=== PATIENT | male | born 2000 | race Asian ===

== ENCOUNTER 2021-01-04 11:36 | Inpatient (IN) ==
[2021-01-04] MEDS ORDERED: LIDO/EPINEPHRINE/SOD BICARB 20 ML VIAL INFIL ONE (12:03)
[2021-01-04] MEDS ORDERED: ACETAMINOPHEN 500 MG TAB PO STA (12:04)
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
--- NOTE | 2021-01-04 12:53 | XRay Report ---
XR hand RT min 3V routine CLINICAL HISTORY: right hand injury, laceration over 4th MCP COMPARISON: None FINDINGS: Lateral view demonstrates soft tissue swelling of the dorsal right hand overlying the meta carpals. Multiple locules of soft tissue gas are present consistent with laceration. There is lucency and cortical irregularity of the right fourth metacarpal head consistent with fracture. Adjacent den sities favor bone fragments. Radiopaque foreign bodies could appear similar but are considered less l ikely. No additional acute fractures are identified. The carpal bones are intact. IMPRESSION: Dorsal right hand soft tissue swelling and gas consistent with laceration. Associated acu te comminuted fracture of the right fourth metacarpal head. Adjacent radiodensities favor bone fragme nts. Radiopaque foreign bodies could appear similar although are considered less likely. ACT 112: Negative or not required by law. Electronically signed by: Geo Arellano M.D. 01/04/2021 12:52 PM
[2021-01-04] MEDS ORDERED: ceFAZolin 2000MG 2,000 MG/15 ML SYR IV STA (13:19)
[2021-01-04] MEDS ORDERED: metroNIDAZOLE 500 MG/100 ML BAG IV STA (14:51)
--- NOTE | 2021-01-04 15:21 | History & Physical Report ---
Date of Service January 04, 2021 Assessment & Plan (1) Open fracture of metacarpal bone: Plan: Patient was seen and evaluated by Dr. Penaloza. We will plan on admitting him to the hospital and taken to the operating room urgently for an irrigation and debridement of his right hand, to decrease risk of infection 4th metacarpal and 4th MCP joint. Risk and complications of the procedure were explained to the patient and informed consent was obtained. We will obtain a preoperative COVID- 19 test. He will be started on IV Unasyn. His wound was washed out in the emergency room and a light dressing was applied temporarily. He will be admitted for 48 hours worth of antibiotics. He understands and agrees with the plan. Is currently n.p.o. He understands and agrees with the plan. Present on Admission?: Yes History of Present Illness Chief Complaint: right hand laceration, pain Primary Care Provider: [facility] This patient is a 20-year-old male who presents to the emergency department for evaluation of an injury to his right hand. Patient states that he was taking out the trash last night and fell. He landed on some glass and cut his hand. He states that his friend is a nurse and looked at it and said they did not think he needed stitches. He was seen at [facility] this morning and states that x-rays were done and he was told there was a fracture and he needed to come here. He was given a tetanus shot while at [employer]. The injury occurred approximately 10 hours prior to arrival. Patient reports pain in the hand rated a 2/10. Allergies Allergy/AdvReac Type Severity Reaction Status Date / Time No Known Allergies Allergy Unverified 01/04/21 15:09 Home Medications Medication Instructions Recorded Confirmed Type duloxetine 30 mg capsule,delayed 30 mg PO DAILY 01/04/21 01/04/21 History release Past Med/Surg History Medical History Smoker Family History Other Diabetes Heart disease Social History Smoking Status: Current some day smoker Tobacco Type: Cigarettes and E-cigarettes / Vaping Hx Alcohol Use: No Hx Substance Use: Yes Non-Prescribed Medications: Marijuana Current Living Situation: Other Current Living Situation Comment: with college roommates current occupational status: student Feels Safe at Home: Yes Review of Systems Review of Systems: All systems reviewed & are unremarkable except as noted in HPI & below Physical Exam Constitutional: WD/WN, vitals as above Cardiovascular: RRR, no murmur, no edema Chest (Breasts): Additional Comments: Lung: Normal lung sounds and effort. Gastrointestinal (Abdomen): Inspection/Auscultation: abdomen normal to inspection and normal bowel sounds; abdomen not distended Musculoskeletal: Exam of right hand: 3 cm oblique laceration dorsal right hand over 4th MCP joint. Active bleeding, no purulence. Mildly tender with palpation of right 4th MCP joint. Nontender throughout rest of hand, full ROM of right wrist. Good finger ROM and decrease strength secondarily to pain. Distal radius and distal ulna pulses 1+, cap refill brisk. Sensation normal. Skin: no rashes, warm and dry Trauma: + evidence of skin trauma and + laceration Results & Data Results & Data ([facility]) Vital Signs (Past 12 Hours) Vital Signs Temp Pulse Pulse Resp BP BP Pulse Ox 01/04/21 13:36 80 16 116/69 100 01/04/21 11:42 37 C 101 H 18 133/85 100 Laboratory Results 01/04/21 01/04/21 01/04/21 Range/Units 14:50 14:50 14:27 COVID-19 Eval Order Covid19 IDNow [facility] SARS-CoV-2 (PCR) Pending SARS-CoV-2, RNA, NAAT Pending 01/04/21 Range/Units 14:27 COVID-19 Eval Order Covid19 at [facility] SARS-CoV-2 (PCR) SARS-CoV-2, RNA, NAAT Diagnostic Findings XR hand RT min 3V routine CLINICAL HISTORY: right hand injury, laceration over 4th MCP COMPARISON: None FINDINGS: Lateral view demonstrates soft tissue swelling of the dorsal right hand overlying the metacarpals. Multiple locules of soft tissue gas are present consistent with laceration. There is lucency and cortical irregularity of the right fourth metacarpal head consistent with fracture. Adjacent densities favor bone fragments. Radiopaque foreign bodies could appear similar but are considered less likely. No additional acute fractures are identified. The carpal bones are intact. IMPRESSION: Dorsal right hand soft tissue swelling and gas consistent with laceration. Associated acute comminuted fracture of the right fourth metacarpal head. Adjacent radiodensities favor bone fragments. Radiopaque foreign bodies could appear similar although are considered less likely. Supervising Physician Co-Signing Physician Notes I, Dr. penaloza, saw and examined the patient with my PA and agree with the above findings and plan of care which I discussed with her.
[2021-01-04] MEDS ORDERED: BUPIVACAINE 0.5 % 5 MG/1 ML MPF 30ML VIAL ONE (15:37)
[2021-01-04] MEDS ORDERED: LIDOCAINE/EPINEPHRINE 1% 20 ML VIAL ONE (15:37)
[2021-01-04] MEDS ORDERED: ONDANSETRON INJ 2 MG/ML 2 ML VIAL IV PRN ×2 (15:50→18:55)
[2021-01-04] MEDS ORDERED: PHENYLEPHRINE 100MCG/ML 5ML SYR IV PRN (15:50)
[2021-01-04] MEDS ORDERED: MEPERIDINE HCL 25 MG/ML CARP/VIAL IV PRN (15:50)
[2021-01-04] MEDS ORDERED: ATROPINE SULFATE 0.1 MG/ML 10ML SYR IV PRN (15:50)
[2021-01-04] MEDS ORDERED: fentaNYL citrate 100 MCG/2 ML VIAL IV PRN (15:50)
[2021-01-04] MEDS ORDERED: HYDROmorphone INJ 1 MG/ML SYRINGE IV PRN ×2 (15:50→18:55)
[2021-01-04] MEDS ORDERED: ePHEDrine sulfate 50 MG/ML AMP IV PRN (15:50)
[2021-01-04] MEDS ORDERED: LABETALOL HCL IV 5 MG/ML 20ML IV PRN (15:50)
[2021-01-04] MEDS ORDERED: fentaNYL citrate 100 MCG/2 ML VIAL ONE (16:30)
[2021-01-04] MEDS ORDERED: PROPOFOL IV EMULSION 10 MG/ML 20 ML VIAL IV ONE ×2 (16:30→17:58)
[2021-01-04] MEDS ORDERED: MIDAZOLAM HCL 1 MG/ML 2ML VIAL ONE (16:31)
[2021-01-04] MEDS ORDERED: LIDOCAINE 2% 2 ML VIAL/AMP(20MG/ML) INFIL ONE (16:33)
--- NOTE | 2021-01-04 16:38 | Anesthesiology Consultation ---
Date of Service January 04, 2021 Assessment & Plan Chart Review Chart Review: Acceptable Risk for Surgery and Patient NOT seen in Pre Admission Testing Consults Requested none History Surgery Operation Date: 01/04/21 16:00 Proposed Procedures p Incision and Drainage Extremity(Right) - Dev Penaloza MD The patient's initial Covid 19 test was negative but his PCR test is positive so he will be treated as a Covid 19 positive patient. His case will be done in OR 1 following full Covid 19 protocols. Height/Weight Height: 6 ft 2 in Weight: 79 kg Allergies Allergy/AdvReac Type Severity Reaction Status Date / Time No Known Allergies Allergy Unverified 01/04/21 15:09 Medications Home Medications Medication Instructions Recorded Confirmed Last Taken duloxetine 30 mg capsule,delayed 30 mg PO DAILY 01/04/21 01/04/21 Unknown release NPO Date Last Intake of Fluids: 01/04/21 Time Last Intake of Fluids: 05:00 Date Last Intake of Solids: 01/04/21 Time Last Intake of Solids: 05:00 Past Medical History Medical History Smoker Exercise / Class Metabolic Activity II 4-5 Yardwork/Stairs/Walk up hill Past Family History Family History Other Diabetes Heart disease Past Anesthesia History No Hx of Anesthesia Complications and No Family Hx of Anesthesia Complications Social History Smoking Status: Current some day smoker Hx Alcohol Use: No Hx Substance Use: Yes Physical Exam Vital Signs Last Vital Signs Temp 37 C 01/04/21 11:42 Pulse 96 H 01/04/21 15:42 Resp 18 01/04/21 15:42 BP 137/82 01/04/21 15:42 Pulse Ox 99 01/04/21 15:42
--- NOTE | 2021-01-04 17:44 | Post Operative Brief Note ---
Immediate Post Op Note v1 Date of Surgery January 04, 2021 Pre & Post Diagnosis Operation Date: 01/04/21 16:00 Pre-op Dx: Open right 4th metacarpal fracture Post-Op Dx: Open right 4th metacarpal fracture, non-displaced involved 4th MCP joint I identified the patient and participated in the time-out.: Yes Procedure Operation Date: 01/04/21 16:00 I&D Right hand Surgeon Dev Penaloza MD Mental Hygiene Consultant Josh Lawler PA-C (No fellow avail) Estimated Blood Loss 15 Findings Consistent with Post-Op Diagnosis Fluids 500 cc Specimens Specimen Bone & articular cartilage 4th Metacarpal C&S right hand C&S right 4th MCP joint Anesthesia Type MAC Complications none
--- NOTE | 2021-01-04 18:01 | Anesthesiology Progress Note ---
Date of Service January 04, 2021 Anesthesia Post Procedure Vital Signs Vital Signs: Temp Pulse Pulse Resp BP BP Pulse Ox 01/04/21 16:39 96 H 18 137/82 99 01/04/21 15:42 96 H 18 137/82 99 01/04/21 15:25 93 H 18 142/84 H 100 01/04/21 13:36 80 16 116/69 100 01/04/21 11:42 37 C 101 H 18 133/85 100 Transfer of Care Handoff Completed per policy Notes Mental Status: alert / awake / arousable Patient Amnestic to Procedure: Yes Nausea / Vomiting: adequately controlled Pain: adequately controlled Airway Patency, RR, SpO2: stable & adequate BP & HR: stable & adequate Hydration State: stable & adequate Anesthetic Complications: no major complications apparent and Pt Satisfied with anesthetic care Notes: The patient is awake and comfortable. He is being recovered in OR 1 due to having Covid 19.
--- NOTE | 2021-01-04 18:02 | Operative Report ---
Post Operative Report Pre & Post Diagnosis Operation Date: 01/04/21 16:00 Pre-Op Diagnosis: Open fracture of right fourth metacarpal bone Post-Op Diagnosis: Open fracture of right fourth metacarpal bone I identified the patient and participated in the time-out.: Yes Procedure Operation Date: 01/04/21 16:00 Actual Procedures p Irrigation and debridement right hand(Right) - Dev Penaloza MD Surgeon Dev Penaloza M.D. Water Engineer Josh Lawler PA-C (No fellow avail) Estimated Blood Loss 15 Findings Consistent with Post-Op Diagnosis Right 4th MCP joint involvement Specimens Right hand and MCP joint cultures Bone right 4th MCP Anesthesia Type MAC Description of Procedure Patient was taken to the operating room, placed under IV sedation and local digital block given. Time out performed, prepped and draped in routine sterile fashion. I was present during the entire case, please see Dr. Penaloza's operative report for further details. Patient was awakened and taken to the recovery room in stable condition. I attest to the content of the Intraoperative Record and any orders documented therein. Any exceptions are noted below.
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
[2021-01-04] MEDS ORDERED: NALOXONE HCL 0.4 MG/1 ML VIAL/CARP IV PRN (18:55)
[2021-01-04] MEDS ORDERED: MAGNESIUM HYDROXIDE SUSP 30 ML UDC PO PRN (18:55)
[2021-01-04] MEDS ORDERED: HYDROmorphone INJ 0.5 MG/0.5 ML SYR IV PRN (18:55)
[2021-01-04] MEDS ORDERED: oxyCODONE HCL IR 5 MG TAB (IMMEDIATE RELEASE) PO PRN (18:55)
[2021-01-04] MEDS ORDERED: bisacodyL 10 MG SUPP PR PRN (18:55)
[2021-01-04] MEDS: AMPICILLIN/SULBACTAM SOD 3,000 MG in 0.9 % SODIUM CHLORIDE 100 ML IV SCH (18:56)
[2021-01-04] MEDS: SODIUM CHLORIDE 0.9% 1000ML 1,000 ML IV SCH (20:00)
[2021-01-04] MEDS: KETOROLAC 30 MG/ML VIAL IV SCH (20:00)
[2021-01-04] MEDS: DOCUSATE SODIUM 100 MG CAP PO SCH (21:12)
[2021-01-04] MEDS: ACETAMINOPHEN 500 MG TAB PO SCH (21:13)
[2021-01-04] MEDS: SENNA 8.6 MG TAB PO SCH (21:13)
[2021-01-05] MEDS: AMPICILLIN/SULBACTAM SOD 3,000 MG in 0.9 % SODIUM CHLORIDE 100 ML IV SCH ×4 (00:30→18:00)
[2021-01-05] MEDS: KETOROLAC 30 MG/ML VIAL IV SCH ×3 (02:57→14:17)
[2021-01-05] MEDS: ACETAMINOPHEN 500 MG TAB PO SCH ×3 (06:16→20:44)
[2021-01-05] MEDS: SODIUM CHLORIDE 0.9% 1000ML 1,000 ML IV SCH (06:23)
[2021-01-05] MEDS: DOCUSATE SODIUM 100 MG CAP PO SCH ×2 (08:06→20:44)
[2021-01-05] MEDS: DULoxetine HCL 30 MG CAP PO SCH (08:06)
--- NOTE | 2021-01-05 10:15 | Orthopedic Progress Note ---
Date of Service January 05, 2021 Assessment & Plan (1) Open fracture of metacarpal bone: Plan: POD #1 Present on Admission?: Yes Admission and Anticipated Discharge Date Admission Date: January 04, 2021 Review of Systems Review of Systems: All systems reviewed & are unremarkable except as noted in HPI & below Results & Data ([facility]) Vital Signs (Past 12 Hours) Vital Signs Temp Pulse Resp BP Pulse Ox 01/05/21 07:05 36.8 C 78 18 102/62 97 01/05/21 02:56 36.7 C 86 14 108/69 97 01/04/21 22:23 36.8 C 87 16 125/64 96 Laboratory Results Microbiology 01/04/21 17:30 Gram Stain - Final Hand,Right Aerobic and Anaerobic Culture - Preliminary Pin-point growth present, reincubating. 01/04/21 17:30 Gram Stain - Final Hand,Right Aerobic and Anaerobic Culture - Preliminary Pin-point growth present, reincubating.
--- NOTE | 2021-01-05 11:03 | Orthopedic Progress Note ---
Date of Service January 05, 2021 Assessment & Plan (1) Open fracture of metacarpal bone: Plan: POD #1 s/p I&D right hand, doing as well as expected Continue IV Unasyn 3g q6hr Follow C&S No heavy lifting Plan to check wound/incision 01/06/2021 Continue COVID isolation. Continue diet. Continue pain control Present on Admission?: Yes Admission and Anticipated Discharge Date Admission Date: January 04, 2021 Subjective No complaints Review of Systems Review of Systems: All systems reviewed & are unremarkable except as noted in HPI & below Physical Exam Musculoskeletal: RUE: Splint/dressing clean, dry, intact. BCR < 2 sec. Sensation to light touch intact. Results & Data ([facility]) Vital Signs (Past 12 Hours) Vital Signs Temp Pulse Resp BP Pulse Ox 01/05/21 07:05 36.8 C 78 18 102/62 97 01/05/21 02:56 36.7 C 86 14 108/69 97 Laboratory Results Microbiology 01/04/21 17:30 Gram Stain - Final Hand,Right Aerobic and Anaerobic Culture - Preliminary Pin-point growth present, reincubating. 01/04/21 17:30 Gram Stain - Final Hand,Right Aerobic and Anaerobic Culture - Preliminary Pin-point growth present, reincubating.
[2021-01-05] MEDS: SENNA 8.6 MG TAB PO SCH (20:45)
[2021-01-06] MEDS: AMPICILLIN/SULBACTAM SOD 3,000 MG in 0.9 % SODIUM CHLORIDE 100 ML IV SCH ×3 (00:03→11:12)
[2021-01-06] MEDS: ACETAMINOPHEN 500 MG TAB PO SCH (06:00)
[2021-01-06] MEDS: DOCUSATE SODIUM 100 MG CAP PO SCH (08:49)
[2021-01-06] MEDS: DULoxetine HCL 30 MG CAP PO SCH (08:49)
--- NOTE | 2021-01-06 09:21 | Orthopedic Progress Note ---
Date of Service January 06, 2021 Assessment & Plan (1) Open fracture of metacarpal bone: Plan: POD #2 s/p I&D right hand, doing as well as expected Continue IV Unasyn 3g q6hr, while in hospital, switch to Augmentin 875mg BID for 8 weeks as an outpatient. No heavy lifting Dressing changed and splint replaced 01/06/2021 Continue COVID isolation. Continue diet. Continue pain control: will utilize NSAIDs alternating with Tylenol as an outpatient. Plan d/d home later today. Admission and Anticipated Discharge Date Admission Date: January 04, 2021 Subjective Tolerable pain overnight right hand Review of Systems Review of Systems: All systems reviewed & are unremarkable except as noted in HPI & below Physical Exam Physical Exam: RUE: Neurovascularly intact. Wound/incision is clean, dry, intact. No evidence of infection. Limited ROM of digits secondarily to pain. Results & Data ([facility]) Vital Signs (Past 12 Hours) Vital Signs Temp Pulse Resp BP Pulse Ox 01/06/21 07:00 36.7 C 77 18 153/66 H 96 01/05/21 23:57 37.1 C 77 18 109/71 96 Laboratory Results Microbiology 01/04/21 17:30 Gram Stain - Final Hand,Right Aerobic and Anaerobic Culture - Preliminary Haemo.influ betalactamase neg 01/04/21 17:30 Gram Stain - Final Hand,Right Aerobic and Anaerobic Culture - Preliminary Haemo.influ betalactamase neg
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
== END 2021-01-06 13:35 | disposition home or self-care (01) | DRG 506 ==
LOC: ED 11:36 → OR 16:44 → 3W 17:58